=== PATIENT | male | born 1945 | race Hispanic/Latino ===

== ENCOUNTER 2017-06-10 11:11 | Emergency (ER) | payer MEDICARE ==
[2017-06-10 12:28] VITALS: RESP 16; TEMP 97.7
--- NOTE | 2017-06-10 12:39 | ED PDOC ---
Arrival/HPI - General Chief Complaint: Abdominal Pain Time Seen by Provider: 06/10/17 12:31 Historian: Patient - History of Present Illness Narrative History of Present Illness (Text): 06/10/17 12:38 72 year old male, whose past medical history includes left nephrectomy, and not clarified cancer, presents to the emergency department complaining of constant right flank pain radiating to the ribs for the past 4 days. patient reports taking Tylenol with no relief. He states the pain is worse than his past kidney stones symptoms. Patient states to have a cough with phlegm and smelly urine, but denies any fever, chills, chest pain, shortness of breath, nausea, vomiting , diarrhea, hematuria, back pain, neck pain, headache, dizziness, or any other complaints. Time/Duration: Other (4 days) Symptom Onset: Sudden Symptom Course: Unchanged Activities at Onset: Light Context: Home Past Medical History - Provider Review Nursing Documentation Reviewed: Yes - Cardiac Hx Cardiac Disorders: No - Pulmonary Hx Respiratory Disorders: Yes Other/Comment: COUGH - Neurological Hx Neurological Disorder: No - HEENT Hx HEENT Disorder: Yes Other/Comment: EAR DISCHARGE - Renal Hx Renal Disorder: Yes Other/Comment: L NEPHRECTOMY - Endocrine/Metabolic Hx Endocrine Disorders: No - Hematological/Oncological Hx Blood Disorders: No - Integumentary Hx Dermatological Disorder: No - Musculoskeletal/Rheumatological Hx Musculoskeletal Disorders: Yes Other/Comment: L KNEE - Gastrointestinal Hx Gastrointestinal Disorders: No - Genitourinary/Gynecological Hx Genitourinary Disorders: No - Psychiatric Hx Psychophysiologic Disorder: Yes Hx Post Traumatic Stress Disorder: Yes Hx Substance Use: Yes - Surgical History Other/Comment: L NEPHRECTOMY, L KNEE - Anesthesia Hx Anesthesia: No Family/Social History - Physician Review Nursing Documentation Reviewed: Yes Family/Social History: No Known Family HX Smoking Status: Former Smoker Hx Alcohol Use: No Hx Substance Use: Yes Substance used: CANNABIS Allergies/Home Meds Allergies/Adverse Reactions: Allergies Penicillins Allergy (Verified 06/10/17 12:18) SWELLING Home Medications: Home Meds Medication Instructions Recorded Confirmed Glyburide 5 mg PO DAILY 02/22/15 02/27/15 Sertraline Hydrochloride 100 mg PO DAILY 02/22/15 02/27/15 [Sertraline] Ibuprofen [Motrin Tab] 1 tab PO BID PRN 09/29/15 09/29/15 Review of Systems - Physician Review All systems were reviewed & negative as marked: Yes - Review of Systems Constitutional: absent: Fevers, Other (Chills) Respiratory: Cough. absent: SOB Cardiovascular: absent: Chest Pain Gastrointestinal: Abdominal Pain. absent: Diarrhea, Nausea, Vomiting Genitourinary Male: Other (Smell urine ). absent: Dysuria, Frequency, Hematuria Musculoskeletal: absent: Back Pain, Neck Pain Neurological: absent: Headache, Dizziness Physical Exam Vital Signs Reviewed: Yes Vital Signs Temp Pulse Resp BP Pulse Ox 06/10/17 12:23 97.7 F 74 16 155/71 H 96 Temperature: Afebrile Blood Pressure: Normal Pulse: Regular Respiratory Rate: Normal Appearance: Positive for: Well-Appearing, Non-Toxic, Comfortable Pain Distress: None Mental Status: Positive for: Alert and Oriented X 3 - Systems Exam Head: Present: Atraumatic, Normocephalic Pupils: Present: PERRL Extroacular Muscles: Present: EOMI Conjunctiva: Present: Normal Mouth: Present: Moist Mucous Membranes Neck: Present: Normal Range of Motion Respiratory/Chest: Present: Clear to Auscultation, Good Air Exchange. No: Respiratory Distress, Accessory Muscle Use Cardiovascular: Present: Regular Rate and Rhythm, Normal S1, S2. No: Murmurs Abdomen: Present: Tenderness (Right CVA tenderness. Abdominal soft on area of tenderness), Normal Bowel Sounds. No: Distention, Peritoneal Signs Back: Present: Normal Inspection Upper Extremity: Present: Normal Inspection. No: Cyanosis, Edema Lower Extremity: Present: Normal Inspection. No: Edema Neurological: Present: GCS=15, CN II-XII Intact, Speech Normal Skin: Present: Warm, Dry, Normal Color. No: Rashes Psychiatric: Present: Alert, Oriented x 3, Normal Insight, Normal Concentration , Anxious (and animated) Medical Decision Making ED Course and Treatment: 06/10/17 12:39 Impression: 72 year old male presents complaining of right flank pain radiating to the ribs. PE shows right CVA tenderness. Plan: -- Toradol -- Urinalysis -- Chest One View X-Ray -- Abdomen 1 View X-Ray -- Reassess and disposition Progress Notes: Labs reviewed and came back to be negative PROCEDURE: Chest X-ray Dictator : Henry Jeffries MD Report Date : 06/10/2017 16:09:44 IMPRESSION: Progressive pulmonary masses/metastatic disease. Persistent right pleural effusion which appears smaller compared to the prior study. PROCEDURE: Abdomen X-Ray Dictator : Henry Jeffries MD Report Date : 06/10/2017 16:11:40 IMPRESSION: Calculus disease confined to the right kidney. Chest X-ray and abdomen X-ray were reviewed. Chest CT ordered. PROCEDURE: CT chest with IV contrast Dictator : Piedad Cooper MD Report Date : 06/10/2017 18:15:09 Impression: Hypodense left lower pole thyroid mass. Bulky left superior mediastinal adenopathy. Innumerable pulmonary nodules. Additional numerous complex enlarged heterogeneous masses throughout both lung mccollum (possibly with regions of necrosis), right greater than left which appear pleural based as described above. Small right pleural effusion. T10 sclerotic vertebral body with posterior lucency in evidence of associated soft tissue mass extending to the posterior elements. If indicated, recommend further evaluation with MRI. Limited visualization of the upper abdomen: Left kidney is not visualized. - Lab Interpretations Lab Results: 06/10/17 16:22 06/10/17 16:22 Lab Results 06/10/17 16:22: Sodium 142, Potassium 4.6, Chloride 106, Carbon Dioxide 25, Anion Gap 16, BUN 23 H, Creatinine 1.2, Est GFR ( Amer) > 60, Est GFR ( Non-Af Amer) 60, Random Glucose 110, Calcium 9.9, Total Bilirubin 0.6, AST 21, ALT 24, Alkaline Phosphatase 71, Total Protein 7.9, Albumin 4.4, Globulin 3.6, Albumin/Globulin Ratio 1.2 06/10/17 16:22: WBC 9.7, RBC 4.15, Hgb 13.1 L, Hct 39.6 L, MCV 95.4, MCH 31.6, MCHC 33.1, RDW 16.1 H, Plt Count 272, MPV 10.4, Gran % 70.9 H, Lymph % (Auto) 21.1 L, [place] % (Auto) 6.8 H, Eos % (Auto) 1.0 L, Baso % (Auto) 0.2, Gran # 6.89 H, Lymph # 2.1, [place] # 0.7 H, Eos # 0.1, Baso # 0.02 06/10/17 13:00: Urine Color Yellow, Urine Appearance Clear, Urine pH 6.0, Ur Specific [place] 1.015, Urine Protein Negative, Urine Glucose (UA) Negative, Urine Ketones Negative, Urine Blood Negative, Urine Nitrate Negative, Urine Bilirubin Negative, Urine Urobilinogen 0.2, Ur Leukocyte Esterase Negative I have reviewed the lab results: Yes - RAD Interpretation Radiology Orders: 06/10/17 14:48 ABDOMEN (FLAT PLATE) 1VIEW [RAD] Stat 06/10/17 14:49 CHEST ONE VIEW [RAD] Stat 06/10/17 15:58 CHEST W/CONTRAST [CT] Stat - Medication Orders Current Medication Orders: Discontinued Medications Ketorolac Tromethamine (Toradol) 30 mg IM STAT STA Stop: 06/10/17 12:40 Last Admin: 06/10/17 13:32 Dose: 30 mg [facility] Pain Assessment Document 06/10/17 13:32 HI (Rec: 06/10/17 13:32 [id number]) Pain Reassessment Is this a pain reassessment? No Sleep Is patient sleeping during reassessment? No Presence of Pain Presence of Pain Yes IM Administration Charges Document 06/10/17 13:32 HI (Rec: 06/10/17 13:32 [id number]) Charges for Administration # of IM Administrations 1 Re-Assess: JORGE Pain Assessment Document 06/10/17 14:32 HI (Rec: 06/10/17 17:29 [id number]) Pain Reassessment Is this a pain reassessment? Yes Sleep Is patient sleeping during reassessment? No Presence of Pain Presence of Pain No - Scribe Statement The provider has reviewed the documentation as recorded by the Mavis Zaman Provider Scribe Attestation: All medical record entries made by the Sunitaibjorge were at my direction and personally dictated by me. I have reviewed the chart and agree that the record accurately reflects my personal performance of the history, physical exam, medical decision making, and the department course for this patient. I have also personally directed, reviewed, and agree with the discharge instructions and disposition. Disposition/Present on Arrival - Present on Arrival Any Indicators Present on Arrival: No History of DVT/PE: No History of Uncontrolled Diabetes: No Urinary Catheter: No History of Decub. Ulcer: No History Surgical Site Infection Following: None - Disposition Have Diagnosis and Disposition been Completed?: Yes Diagnosis: Pleural effusion, Pulmonary mass Disposition Time: 18:40 Patient Plan: Discharge Condition: STABLE Additional Instructions: Must follow up with a lung doctor as soon as possible to evaluate findings on CT of the chest. Prescriptions: Tramadol HCl [Ultram] 50 mg PO QID #20 tablet Referrals: PCP,HEENA [Primary Care Provider] - Follow up with primary Kayden Mcleod MD [Staff Provider] - Follow up with primary Forms: Zilyo (Kittitian)
[2017-06-10 13:26] LABS: URINE BILIRUBIN NEGATIVE (NEGATIVE); URINE BLOOD NEGATIVE (NEGATIVE); URINE GLUCOSE (UA) NEGATIVE (NEGATIVE); URINE LEUKOCYTE ESTERASE NEGATIVE Leu/uL (NEGATIVE); URINE NITRATE NEGATIVE (NEGATIVE); URINE PROTEIN NEGATIVE mg/dL (<30 mg/dL); URINE UROBILINOGEN 0.2 E.U./dL (<1 E.U./dL)
[2017-06-10 13:28] LABS: URINE APPEARANCE CLEAR (CLEAR); URINE COLOR YELLOW (YELLOW)
--- NOTE | 2017-06-10 16:11 | RAD ---
PROCEDURE: CHEST RADIOGRAPH, 1 VIEW HISTORY: right pain COMPARISON: 11/07/2016. FINDINGS: LUNGS: Multiple pulmonary masses left lung the largest in the left lower lobe partially obscured measures 4.5 cm. Consolidative changes in underlying pulmonary nodules right lung. PLEURA: Incompletely visualized right pleural effusion. CARDIOVASCULAR: No radiographic findings to suggest acute or significant cardiovascular disease. OSSEOUS STRUCTURES: No significant abnormalities. VISUALIZED UPPER ABDOMEN: Normal. OTHER FINDINGS: None. IMPRESSION: Progressive pulmonary masses/metastatic disease. Persistent right pleural effusion which appears smaller compared to the prior study.
--- NOTE | 2017-06-10 16:13 | RAD ---
HISTORY: right flank pain COMPARISON: No prior. FINDINGS: BOWEL: Constipation without fecal impaction or obstruction. BONES: Normal. OTHER FINDINGS: Surgical clips related to left nephrectomy. Incompletely visualized small calculus overlying the expected location of the upper pole of the right kidney less than 3 mm. IMPRESSION: Calculus disease confined to the right kidney.
[2017-06-10 16:33] LABS: BASO # 0.02 K/mm3 (0.0-2.0); BASO % 0.2 % (0.0-3.0); EOS # 0.1 (0.0-0.7); GRAN # 6.89 (1.4-6.5); GRAN % 70.9 % (50.0-68.0); HEMOGLOBIN 13.1 g/dL (14.0-18.0); LYMPH # 2.1 (1.2-3.4); LYMPH % 21.1 % (22.0-35.0); MEAN CELL VOLUME 95.4 fl (80.0-105.0); MEAN CORPUSCULAR HEMOGLOBIN 31.6 pg (25.0-35.0); MEAN CORPUSCULAR HGB CONC 33.1 g/dl (31.0-37.0); MEAN PLATELET VOLUME 10.4 fl (7.0-11.0); MONO # 0.7 (0.1-0.6); MONO % 6.8 % (1.0-6.0); RBC 4.15 10^6/uL (3.5-6.1); RED CELL DISTRIBUTION WIDTH 16.1 % (11.5-14.5); WHITE BLOOD COUNT 9.7 10^3/ul (4.5-11.0)
[2017-06-10 17:02] LABS: ALB/GLOB RATIO 1.2 (1.1-1.8); ALBUMIN 4.4 g/dL (3.0-4.8); ALT/SGPT 24 U/L (7-56); AST/SGOT 21 U/L (17-59); BLOOD UREA NITROGEN 23 mg/dL (7-21); CALCIUM 9.9 mg/dL (8.4-10.5); GFR AFRICAN-AMERICAN > 60; GFR NON-AFRICAN AMERICAN 60
[2017-06-10] MEDS ORDERED: Iohexol 350 MG/100 ML VIAL ONE (17:20)
[2017-06-10] MEDS ORDERED: Iodixanol 320 MG/ML 100 ML BOTTLE IV ONE (17:28)
--- NOTE | 2017-06-10 18:16 | CT ---
CT chest with IV contrast Indication: Right effusion Technique: Contiguous axial images were obtained through the chest with intravenous contrast enhancement. Sagittal and coronal reconstructions were generated and reviewed. This CT exam was performed using 1 or more of the falling dose reduction techniques: Automated exposure control, adjustment of the MAA and/or kV according to patient size, and/or use of iterative reconstruction technique. IV Contrast: 95 cc Visipaque IV Radiation dose (DLP): 348.26 MGy-cm. Comparison: Chest x-ray performed 06/10/17 Findings: Visualized portions of the inferior thyroid gland demonstrates hypodense left thyroid lower pole mass. Heart size appears within normal limits. Bulky adenopathy including 5.0 x 3.4 cm left superior mediastinal adenopathy. Innumerable pulmonary nodules. Numerous complex enlarged pleural-based heterogeneous masses. For example: 4.6 x 8.2 cm heterogeneous mass extends from the level of the pleura to the right heart /mediastinal border. 13.5 x 11.7 cm complex heterogeneous mass which appears pleural base noted at the level the right lung base. Small right pleural effusion. No visible pneumothorax. 2.7 x 3.7 cm left lateral pleural based mass. Irregular border complex heterogeneous mass, also appears pleural based at the level of the left lower lobe measures approximately 8.1 x 7.8 cm. Limited visualization of the upper abdomen. The left kidney is not visualized. T10 sclerotic vertebral body with posterior lucency in evidence of associated soft tissue mass extending to the posterior elements. Impression: Hypodense left lower pole thyroid mass. Bulky left superior mediastinal adenopathy. Innumerable pulmonary nodules. Additional numerous complex enlarged heterogeneous masses throughout both lung mccollum (possibly with regions of necrosis), right greater than left which appear pleural based as described above. Small right pleural effusion. T10 sclerotic vertebral body with posterior lucency in evidence of associated soft tissue mass extending to the posterior elements. If indicated, recommend further evaluation with MRI. Limited visualization of the upper abdomen: Left kidney is not visualized.
[2017-06-10 18:46] VITALS: BP 147/83; PULSE 80; O2SAT 97
== END 2017-06-10 18:46 | disposition home or self-care (01) ==
LOC: ED 11:11
DX: J90 Pleural effusion, not elsewhere classified (principal); R91.8 Other nonspecific abnormal finding of lung field; Z87.891 Personal history of nicotine dependence; Z88.0 Allergy status to penicillin
CPT/HCPCS: 71045; 71260; 74018; 80053; 81003; 85025; 96372; 99283; J1885; Q9967